=== PATIENT | male | born 1985 | race Caucasian/White ===

== ENCOUNTER → 2017-10-07 | Emergency (ER) | payer OTHER ==
[~2017-10-07] VITALS: Ht 180.3 cm; Wt 77.1 kg
== END | disposition home or self-care (01) ==
LOC: ER 20:37
DX: K29.70 Gastritis, unspecified, without bleeding (principal)

== ENCOUNTER 2018-06-09 07:59 | Emergency (ER) | payer OTHER ==
[~2018-06-09] VITALS: Ht 180.3 cm; Wt 77.1 kg
[2018-06-09] MEDS ORDERED: ZITHROMAX500 MG PO (08:04)
== END 2018-06-09 12:10 | disposition home or self-care (01) ==
LOC: ER 07:59
DX: R50.9 Fever, unspecified (principal); G44.209 Tension-type headache, unspecified, not intractable

== ENCOUNTER → 2019-03-18 | Emergency (ER) | payer OTHER ==
[~2019-03-18] VITALS: Ht 180.3 cm; Wt 77.1 kg
[~2019-03-18] MED LIST: CEFDINIR300 MG; ZITHROMAX500 MG PO
== END | disposition home or self-care (01) ==
LOC: ER 18:14
DX: J35.01 Chronic tonsillitis (principal)

== ENCOUNTER 2019-03-23 14:24 | Emergency (ER) | payer OTHER ==
[~2019-03-23] VITALS: Ht 180.3 cm; Wt 77.1 kg
[2019-03-23] MEDS ORDERED: DELSYM30 MG/5 M1 PO (18:55)
== END 2019-03-23 18:58 | disposition home or self-care (01) ==
LOC: ER 14:24
DX: B27.90 Infectious mononucleosis, unspecified without complication (principal); J03.80 Acute tonsillitis due to other specified organisms

== ENCOUNTER 2021-07-20 16:40 | Emergency (ER) | payer OTHER ==
[~2021-07-20] VITALS: Ht 180.3 cm; Wt 83.0 kg
[~2021-07-20 16:40] MED LIST changes: +DELSYM30 MG/5 M1 PO
[2021-07-20] MEDS ORDERED: PANADOL (17:51)
[2021-07-20] MEDS ORDERED: ADVIL (17:52)
== END 2021-07-20 21:23 | disposition home or self-care (01) ==
LOC: ER 16:40
DX: M94.0 Chondrocostal junction syndrome [Tietze] (principal); M62.838 Other muscle spasm